=== PATIENT | female | born 1990 | race Hispanic/Latino ===

== ENCOUNTER 2017-03-14 16:30 | Emergency (ER) | payer BC ==
[2017-03-14 17:11] LABS: Bilirubin Negative (Negative); Blood, Urine Negative (Negative); Glucose, Urine (Dipstick) Negative (Negative); Ketone, Urine Negative (Negative); Nitrite Negative (Negative); Protein, Urine (Dipstick) Negative (Neg-Trace); Urobilinogen 0.2 mg/dL (0.2-1.0)
[2017-03-14 17:23] LABS: #Basophils 0.1 thou/uL (0.0-0.2); #Eosinphils 0.2 thou/uL (0.0-0.7); #Lymphocytes 2.2 thou/uL (1.20-3.40); #Monocytes 0.5 thou/uL (0.11-0.59); #Neutrophils 7.3 thou/uL (1.40-6.50); %Basophils 0.6 % (0.0-1.0); %Eosinophils 2.1 % (0.0-10.0); %Lymphocytes 21.3 % (21.0-51.0); %Monocytes 5.1 % (0.0-10.0); Hematocrit 37.4 % (36.0-47.0); Mean Platelet Volume 6.3 fL (7.4-10.4); Red Blood Cell (RBC) Count 4.26 mill/uL (4.20-5.40); White Blood Cell (WBC) Count 10.4 thou/uL (4.8-10.8)
--- NOTE | 2017-03-14 20:01 | ULT ---
PELVIC ULTRASOUND INCLUDING TRANSABDOMINAL AND TRANSVAGINAL AND VASCULAR DUPLEX WITH COLOR AND SPECT RAL DOPPLER IMAGIN03/14/17 HISTORY: Pelvic pain. The uterus measures 9.5 x 5.0 x 5.9 cm. The right ovary was not seen. The left ovary is enlarged gopi suring 5.8 x 5.6 x 4.8 and contains one fairly large left ovarian cyst measuring 2.5 x 4.2 x 4.6 cm as well as a second more complex hypoechoic focus which measures 2.3 x 2.4 x 2.7 cm. The smaller one could possibly represent a corpus luteum type cyst. There is a potential gestational sac within the uterine fundus which measures approximately 0.5 x 0.9 x 0.6 cm. which could represent an approximat joanna 5.5 week IUP. Correlate with serum HCGs. No abscess or abnormal fluid collection. IMPRESSION: Potential early intrauterine fundal gestational sac at approximately 5.5 weeks. Followup serum HCGs are recommended. Left ovarian cyst as well as a separate somewhat smaller more complicated appearing focus within the left ovary possibly collapsed cyst or corpus luteum type cyst. Consider followup u ltrasound examination if there remains a question of viable intrauterine as well as to re- evaluate the left ovarian abnormalities. POS: [facility]
--- NOTE | 2017-03-15 02:22 | CON ---
DATE OF ENCOUNTER: 03/14/2017 PRIMARY PHYSICIAN: Simran Coronado M.D. REFERRING PROVIDER: Vamshi Wright D.O. CHIEF COMPLAINT: Abdominal pain. HISTORY OF PRESENT ILLNESS: The patient is a 26-year-old G3, P1 female with a recently diagnosed pr egnancy at approximately 5 weeks gestation. The patient reports that she had intercourse last night with subsequent pain. Since that time, the pain has been resolving, but has been concerned for the as this has been planned . The patient reports that her pain has improved since the time of intercourse. She denies any fever, chills, constipation, diarrhea, any illness, any va ginal bleeding, or urinary symptoms. She denies nausea, vomiting. PAST MEDICAL HISTORY: Genital herpes. PAST SURGICAL HISTORY: Negative. ALLERGIES: No known drug allergies. MEDICATIONS: None. SOCIAL HISTORY: Denies drug use or tobacco use, but has reported occasional alcohol prior to this p regnancy about once or twice a month. She will drink up to 6 beers. PHYSICAL EXAMINATION: VITAL SIGNS: Blood pressure 122/79, pulse of 80, respiratory rate of 18, temperature 98.7. GENERAL: She appears to be in no acute distress. She is alert and oriented, and cooperative and pl easant to interact with. HEAD: Normocephalic, atraumatic. LUNGS: Clear to auscultation bilaterally. HEART: Has a regular rate and rhythm. ABDOMEN: Obese and soft. She does have a little bit of tenderness in her left adnexa and the supra pubic area and in her right adnexa. She has no guarding or rebound. EXTREMITIES: Nontender, nonedematous. Pelvic ultrasound shows an intrauterine with gestational sac at approximately 5 weeks and 5 days, but no pole. She has a quantitative HCG of 5224. LABORATORY DATA: Hemoglobin 12.4, hematocrit 37.4, platelets of 341,000. UA negative for nitrites, leukocyte esterase, blood. ASSESSMENT AND PLAN: The patient is a 26-year-old female with a recent diagnosis of . No confirmation of a viable as there is no pole present in the presence of a beta-hCG o f 5000. I have given the patient reassurance as her pain is resolving spontaneously and is likely i solated related to intercourse last night. I have asked her to follow up with her primary OB in 2 d ays, where a repeat beta-hCG can be ordered and reviewed for evaluation. She has been given counseling psychologist to come back to the emergency room should she experience a sudden onset of pain again. The patient has expressed understanding. I have spoken with Dr. Simran Coronado, I have communicated with her and has directed her patient to make an appointment with Dr. Sharma on Sunday as Dr. Simran Coronado will be u navailable.
== END 2017-03-14 20:36 | disposition home or self-care (01) ==
LOC: ERS 16:30
DX: O20.0 Threatened abortion (principal); O99.341 Other mental disorders complicating pregnancy, first trimester; F41.9 Anxiety disorder, unspecified; F32.9 Major depressive disorder, single episode, unspecified; Z3A.01 Less than 8 weeks gestation of pregnancy
CPT/HCPCS: 36415; 76856; 81003; 81025; 84702; 85025; 86900; 86901; 87480; 87491; 87510; 87591; 87660

== ENCOUNTER 2017-03-23 13:38 | Outpatient (CLI) | payer BC ==
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
== END 2017-03-23 13:39 | disposition home or self-care (01) ==
LOC: ULT 13:38
PROVIDERS: ATTEND Family Medicine
DX: O20.0 Threatened abortion (principal)
CPT/HCPCS: 76856

== ENCOUNTER 2017-03-30 23:33 | Emergency (ER) | payer BC ==
[2017-03-31 00:10] LABS: #Eosinphils 0.2 thou/uL (0.0-0.7); #Lymphocytes 2.6 thou/uL (1.20-3.40); #Monocytes 0.7 thou/uL (0.11-0.59); #Neutrophils 8.7 thou/uL (1.40-6.50); %Basophils 0.4 % (0.0-1.0); %Eosinophils 1.9 % (0.0-10.0); %Lymphocytes 21.4 % (21.0-51.0); Mean Platelet Volume 6.4 fL (7.4-10.4); Red Blood Cell (RBC) Count 4.23 mill/uL (4.20-5.40); White Blood Cell (WBC) Count 12.3 thou/uL (4.8-10.8)
[2017-03-31 00:32] LABS: ALT (SGPT) 23 U/L (8-55); AST (SGOT) 17 U/L (5-34); Alkaline Phosphatase 57 U/L (40-150); Anion Gap 12 mmol/L (10-20); BUN (Urea Nitrogen) 16 mg/dL (7.0-18.7); Bilirubin, Total Less than 0.2 mg/dL (0.2-1.2); CK (CPK) 62 U/L (29-168); Calc. Creatinine Clearance 0 mL/min (70-130); Calcium 9.8 mg/dL (7.8-10.44); Carbon Dioxide 25 mmol/L (22-29); Chloride 105 mmol/L (98-107); Estimated GFR-MDRD Greater than 90; Globulin 3.4 g/dL (2.4-3.5); Protein, Total 7.3 g/dL (6.0-8.3)
[2017-03-31 01:35] LABS: Troponin I Less than 0.010 ng/mL (< 0.028)
[2017-03-31 04:33] LABS: Bilirubin Negative (Negative); Blood, Urine Negative (Negative); Glucose, Urine (Dipstick) Negative (Negative); Ketone, Urine Negative (Negative); Nitrite Negative (Negative); Protein, Urine (Dipstick) Negative (Neg-Trace); Urobilinogen 0.2 mg/dL (0.2-1.0)
--- NOTE | 2017-03-31 09:26 | RAD ---
CHEST 2 VIEWS: HISTORY: Chest pain. COMPARISON: Chest 1 view 2016. FINDINGS: Lungs are clear. No pneumothorax or effusion. Cardiac silhouette and mediastinal contours are with in normal limits. No acute osseous abnormality. IMPRESSION: No acute intrathoracic abnormality. POS: [facility]
== END 2017-03-31 05:44 | disposition home or self-care (01) ==
LOC: ERS 23:33
DX: O23.591 Infection of other part of genital tract in pregnancy, first trimester (principal); N76.0 Acute vaginitis; O99.341 Other mental disorders complicating pregnancy, first trimester; F32.9 Major depressive disorder, single episode, unspecified; F41.9 Anxiety disorder, unspecified; Z3A.01 Less than 8 weeks gestation of pregnancy
CPT/HCPCS: 36415; 71020; 80053; 81003; 82550; 82553; 84484; 85025; 93005

== ENCOUNTER 2017-05-10 14:43 | Outpatient (CLI) | payer BC ==
--- NOTE | 2017-05-10 16:11 | ULT ---
OB ULTRASOUND: Technique: Transabdominal ultrasound performed. History: Left ovarian cyst, follow up. Comparison: 03-23-17. A left ovarian cyst at that time was measured at 5.8 cm and a second left ovari an cyst was described at 1.7 cm. FINDINGS: There is a viable intrauterine , gestational age by ultrasound is 13 weeks 5 days. hea rt rate recorded at 147 b/min. Placenta is posterior. Amniotic fluid volume appears normal. A large left ovarian cyst is again seen measuring 5 x 6 x 7.5 cm. Right ovary appears unremarkable. Color doppler and spectral analysis shows blood flow to both ovarie s. IMPRESSION: 1. Viable intrauterine with gestational age by ultrasound consistent with 13 week 5 day ges tation. 2. Large left ovarian cyst. POS: [facility]
== END 2017-05-10 14:44 | disposition home or self-care (01) ==
LOC: ULT 14:43
PROVIDERS: ATTEND Family Medicine
DX: O34.81 Maternal care for other abnormalities of pelvic organs, first trimester (principal); Z3A.13 13 weeks gestation of pregnancy
CPT/HCPCS: 76805

== ENCOUNTER 2017-05-22 12:02 | Emergency (ER) | payer BC, OTHER ==
[2017-05-22 12:56] LABS: Bilirubin Negative (Negative); Blood, Urine Negative (Negative); Glucose, Urine (Dipstick) Negative (Negative); Ketone, Urine Negative (Negative); Nitrite Negative (Negative); Protein, Urine (Dipstick) Negative (Neg-Trace)
[2017-05-22 12:59] LABS: Bacteria/HPF 1+ HPF (None Seen); Hyaline Casts/LPF 4-6 HYALINE CAST LPF (0-3 Hyaline); WBC/HPF 0-3 HPF (0-3)
[2017-05-22 13:00] LABS: RBC/HPF None Seen HPF (0-3)
[2017-05-22 14:41] LABS: #Eosinphils 0.1 thou/uL (0.0-0.7); #Lymphocytes 1.9 thou/uL (1.20-3.40); #Monocytes 0.4 thou/uL (0.11-0.59); #Neutrophils 7.7 thou/uL (1.40-6.50); %Basophils 0.5 % (0.0-1.0); %Eosinophils 1.4 % (0.0-10.0); %Lymphocytes 18.2 % (21.0-51.0); %Monocytes 4.3 % (0.0-10.0); Hematocrit 36.5 % (36.0-47.0); Mean Platelet Volume 6.9 fL (7.4-10.4); Red Blood Cell (RBC) Count 4.19 mill/uL (4.20-5.40); White Blood Cell (WBC) Count 10.2 thou/uL (4.8-10.8)
[2017-05-22 15:03] LABS: Anion Gap 11 mmol/L (10-20); BUN (Urea Nitrogen) 9 mg/dL (7.0-18.7); Calc. Creatinine Clearance 0 mL/min (70-130); Calcium 10.1 mg/dL (7.8-10.44); Carbon Dioxide 27 mmol/L (22-29); Chloride 103 mmol/L (98-107); Estimated GFR-MDRD Greater than 90
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
== END 2017-05-22 16:24 | disposition home or self-care (01) ==
LOC: ERS 12:02
DX: O34.82 Maternal care for other abnormalities of pelvic organs, second trimester (principal); N83.202 Unspecified ovarian cyst, left side; O99.89 Other specified diseases and conditions complicating pregnancy, childbirth and the puerperium; M54.5 Low back pain; O99.342 Other mental disorders complicating pregnancy, second trimester; F41.9 Anxiety disorder, unspecified; F32.9 Major depressive disorder, single episode, unspecified; Z3A.15 15 weeks gestation of pregnancy
CPT/HCPCS: 36415; 76856; 80048; 81003; 81015; 81025; 85025

== ENCOUNTER 2017-06-13 10:51 | Outpatient (CLI) | payer BC ==
--- NOTE | 2017-06-13 13:59 | ULT ---
OB ULTRASOUND COMPLETE: History: Anatomy. Comparison: 05-22-17 FINDINGS: Placenta is posterior. Amniotic fluid index is 19.1 cm. heart rate is documented at 152 beats/m inute. The average ultrasound age is 19 weeks 0 days. Estimated date of delivery is 11-07-17. This correspond s to the gestational age. Biometry: BPD 4.27 cm 18 weeks 6 days HC 16.16 cm 19 weeks 0 day AC 14.00 cm 19 weeks 3 days FL 3.17 cm 19 weeks 5 days Estimated weight is 293 grams, 91st percentile. The anatomy scan including the spine, bladder, diaphragm, kidneys, cerebellum, three vessel cord, pos terior fossa spinal cord insertion, and stomach are normal. IMPRESSION: Normal anatomy scan. Single live intrauterine with normal heart rate and average ultrasound age of 19 weeks 0 day. POS: [facility]
== END 2017-06-13 10:52 | disposition home or self-care (01) ==
LOC: ULT 10:51
PROVIDERS: ATTEND Family Medicine
DX: Z34.92 Encounter for supervision of normal pregnancy, unspecified, second trimester (principal); Z3A.19 19 weeks gestation of pregnancy
CPT/HCPCS: 76805

== ENCOUNTER 2017-06-16 19:03 | Emergency (ER) | payer BC, OTHER ==
[2017-06-16 19:41] LABS: Bilirubin Negative (Negative); Blood, Urine Negative (Negative); Clarity Clear (Clear); Glucose, Urine (Dipstick) Negative (Negative); Leukocyte Negative (Negative); Nitrite Negative (Negative); Protein, Urine (Dipstick) Negative (Neg-Trace); Urobilinogen 0.2 mg/dL (0.2-1.0)
[2017-06-16] MEDS ORDERED: Cyclobenzaprine 10 MG TAB ONE (19:41)
== END 2017-06-16 19:47 | disposition home or self-care (01) ==
LOC: SCSER 19:03
DX: O9A.212 Injury, poisoning and certain other consequences of external causes complicating pregnancy, second trimester (principal); S29.012A Strain of muscle and tendon of back wall of thorax, initial encounter; O99.342 Other mental disorders complicating pregnancy, second trimester; F41.9 Anxiety disorder, unspecified; F32.9 Major depressive disorder, single episode, unspecified; Z3A.19 19 weeks gestation of pregnancy; X50.9XXA Other and unspecified overexertion or strenuous movements or postures, initial encounter
CPT/HCPCS: 81003; 99283

== ENCOUNTER 2017-10-26 15:46 | Day surgery (SDC) | payer BC, OTHER ==
[2017-10-26 16:20] VITALS: BMI 42.1
[2017-10-26 16:25] VITALS: BP 129/68
--- NOTE | 2017-10-26 18:03 | PRG ---
DATE OF SERVICE: 10/26/2017 OB ED NOTE PRESENTING COMPLAINT: Elevated blood pressure 140/80 at home x1 with 12 blood pressure checks, and d izziness. HISTORY OF PRESENT ILLNESS: Ms. Peace is a 26-year-old 3, para 1, AB 1, scheduled for an in duction in 3 days with JOSE of 11/10/2017, who presents with a history of mildly elevated blood pressu res and edema. She has not had proteinuria at Dr. Coronado's office. She has a history of fatty liver with normal LFTs. She denies right upper quadrant pain. She denies blurred vision or headache. OBSTETRIC AND GYNECOLOGIC HISTORY: x1, post-date induction; elective termination x1. Rubella no nimmune. VDRL, hepatitis negative. HSV positive on suppression. Blood type A positive. Antibody n egative. Group B strep negative. PAST MEDICAL HISTORY: Obesity and fatty liver. PAST SURGICAL HISTORY: None. ALLERGIES: Denies. MEDICATIONS: vitamins. SOCIAL HISTORY: Denies tobacco, alcohol, or drug abuse. FAMILY HISTORY: Noncontributory. REVIEW OF SYSTEMS: Noncontributory. PHYSICAL EXAMINATION: GENERAL: Obese female in no acute distress. VITAL SIGNS: Blood pressure 132/72, pulse 96, respirations 18. Repeat blood pressures 129/68 and 13 7/76. HEENT: Within normal limits. LUNGS: Clear to auscultation bilaterally. HEART: Regular rhythm. ABDOMEN: Soft and nontender. No palpable contractions. FHTs 140s. PELVIC: Vulva without lesions. No evidence of active herpes lesion. Cervical exam deferred. EXTREMITIES: 1+ edema. 20-minute heart rate tracing revealed positive accelerations, no decelerations, no evidence of labor. IMPRESSION: Mildly elevated occasional blood pressures at home, but no evidence of preeclampsia or s evere gestational hypertension with negative proteinuria and normal liver enzymes at Dr. Coronado's off ice. PLAN: Discharge home. The patient to return for scheduled induction with Cytotec in 3 days.
== END 2017-10-26 16:50 | disposition home or self-care (01) ==
LOC: L&D/OP 15:46
PROVIDERS: ATTEND Family Medicine
DX: O99.89 Other specified diseases and conditions complicating pregnancy, childbirth and the puerperium (principal); R03.0 Elevated blood-pressure reading, without diagnosis of hypertension; O99.619 Diseases of the digestive system complicating pregnancy, unspecified trimester; K76.0 Fatty (change of) liver, not elsewhere classified; Z79.899 Other long term (current) drug therapy
CPT/HCPCS: 99282

== ENCOUNTER 2017-10-28 14:44 | Inpatient (IN) | payer BC, OTHER ==
[2017-10-28] MEDS ORDERED: Promethazine HCl 25 MG/ML VIAL IM PRN (21:18)
[2017-10-28] MEDS ORDERED: Ondansetron HCl/PF 4 MG/2 ML Vial IVP PRN (21:18)
[2017-10-28] MEDS ORDERED: Misoprostol 200 MCG TAB PR PRN (21:18)
[2017-10-28] MEDS ORDERED: Zolpidem Tartrate 5 MG TAB PO PRN (21:18)
[2017-10-28] MEDS ORDERED: HYDROcodone/Acetaminophen 5/325 mg Tablet PO PRN (21:18)
[2017-10-28] MEDS ORDERED: Acetaminophen/Codeine 30-300mg Tablet PO PRN (21:18)
[2017-10-28] MEDS ORDERED: NS / Oxytocin 40 units/1000ml 1,000 ML IV PRN (21:18)
[2017-10-28] MEDS ORDERED: NS w/ Oxytocin 10 units 500 ML IV SCH (21:18)
[2017-10-28] MEDS ORDERED: Lidocaine 1% (PF) 30 ML VIAL SC PRN (21:18)
[2017-10-28 21:30] LABS: Hemoglobin 11.1 g/dL (12.0-16.0); Mean Corpuscular Hemoglobin 29.6 pg (27.0-31.0); Mean Corpuscular Volume 84.4 fl (81.0-99.0); Mean Platelet Volume 7.7 fL (7.4-10.4); Platelet Count 248 thou/uL (130-400); RBC Distribution Width 12.8 % (11.5-14.5); Red Blood Cell (RBC) Count 3.75 mill/uL (4.20-5.40); White Blood Cell (WBC) Count 10.2 thou/uL (4.8-10.8)
[2017-10-28 21:37] LABS: ALT (SGPT) 11 U/L (8-55); AST (SGOT) 17 U/L (5-34); Albumin 3.3 g/dL (3.5-5.0); Alkaline Phosphatase 116 U/L (40-150); Anion Gap 13 mmol/L (10-20); BUN (Urea Nitrogen) 13 mg/dL (7.0-18.7); Bilirubin, Total Less than 0.2 mg/dL (0.2-1.2); Calc. Creatinine Clearance 0 mL/min (70-130); Calcium 9.5 mg/dL (7.8-10.44); Carbon Dioxide 22 mmol/L (22-29); Chloride 107 mmol/L (98-107); Estimated GFR-MDRD Greater than 90; Globulin 2.7 g/dL (2.4-3.5); Glucose 100 mg/dL (70-105); Potassium 4.5 mmol/L (3.5-5.1); Sodium 137 mmol/L (136-145)
[2017-10-28] MEDS: Lactated Ringer's 1,000 ML IV SCH (21:42)
[2017-10-28] MEDS: NS w/ Oxytocin 10 units 500 ML IV SCH (21:42)
[2017-10-28 21:47] VITALS: BMI 42.5
[2017-10-28 21:55] LABS: Syphilis Antibody Nonreactive (Nonreactive); Syphilis Antibody Index 0.02 S/CO (<1.00 Non-Reactive)
[2017-10-28] MEDS: Misoprostol 100 MCG TAB VAG SCH (22:13)
[2017-10-28 22:53] LABS: HBSAg Index 0.18 S/CO (0-0.99); Hep B Surf Ag Non-Reactive S/CO (NonReactive)
[2017-10-29] MEDS: Misoprostol 100 MCG TAB VAG SCH ×3 (00:32→07:59)
[2017-10-29] MEDS ORDERED: Bupivacaine 0.5% 20 ML, fentaNYL Citrate/PF 400 MCG in Sodium Chloride 0.9% 72 ML EPIDURAL SCH (04:45)
[2017-10-29] MEDS ORDERED: DISCONTINUE ALL PREVIOUS NARCOTICS FS SCH (04:45)
[2017-10-29] MEDS ORDERED: Ondansetron HCl/PF 4 MG/2 ML Vial IVP PRN ×2 (05:38→13:50)
[2017-10-29] MEDS ORDERED: Naloxone HCl 0.4 mg/ml Vial IVP PRN ×2 (05:38)
[2017-10-29] MEDS ORDERED: diphenhydrAMINE 50 MG/ML VIAL IVP PRN (05:38)
[2017-10-29] MEDS ORDERED: Promethazine HCl 25 MG/ML VIAL IM PRN (05:38)
[2017-10-29] MEDS ORDERED: ePHEDrine/0.9% NaCl/PF SYRINGE 50 mg/10 ml SLOW IVP PRN (05:38)
[2017-10-29] MEDS ORDERED: Acetaminophen 325 MG TAB PO PRN (05:38)
[2017-10-29] MEDS ORDERED: Lactated Ringer's 500 ML IV PRN (05:38)
[2017-10-29] MEDS ORDERED: Eucerin (Mineral Oil/Petrolatum,White) 30 gm Jar TOP PRN (05:38)
[2017-10-29] MEDS ORDERED: Communication Order-Pharmacy FS SCH (05:45)
[2017-10-29] MEDS ORDERED: Fentanyl 4mcg/Marcaine 0.1% Cassette 100 ML EPIDURAL SCH (05:45)
[2017-10-29] MEDS: Lactated Ringer's 1,000 ML IV SCH (06:01)
[2017-10-29] MEDS: NS w/ Oxytocin 10 units 500 ML IV SCH (07:45)
[2017-10-29] MEDS ORDERED: Lidocaine 1% (PF) 30 ML VIAL ONE (10:07)
[2017-10-29] MEDS ORDERED: NS / Oxytocin 40 units/1000ml 1,000 ML ONE (10:07)
[2017-10-29] MEDS ORDERED: NS / Oxytocin 40 units/1000ml 1,000 ML IV SCH (13:50)
[2017-10-29] MEDS ORDERED: Benzocaine/Menthol 20-0.5% 60 ML CAN TOP PRN (13:50)
[2017-10-29] MEDS ORDERED: diphenhydrAMINE 25 MG CAP PO PRN (13:50)
[2017-10-29] MEDS ORDERED: HYDROcodone/Acetaminophen 5/325 mg Tablet PO PRN (13:50)
[2017-10-29] MEDS ORDERED: traMADol HCl 50 MG TAB PO PRN (13:50)
[2017-10-29] MEDS ORDERED: Preparation H Ointment 28 GM TUBE PR PRN (13:50)
[2017-10-29] MEDS ORDERED: Lanolin Ointment 7 GM TUBE TOP PRN (13:50)
[2017-10-29] MEDS ORDERED: Milk Of Magnesia 30 ML UDCUP PO PRN (13:50)
[2017-10-29] MEDS ORDERED: Docusate Calcium (SURFAK) 240 MG CAP PO SCH ×2 (13:50→14:15)
[2017-10-29] MEDS ORDERED: Bisacodyl 10 MG SUPP PR PRN (13:50)
[2017-10-29] MEDS: Acetaminophen/Codeine 30-300mg Tablet PO PRN (18:00)
[2017-10-29] MEDS: Ferrous Sulfate 325 MG TAB PO SCH (18:01)
[2017-10-29] MEDS: Ibuprofen 800 MG TAB PO SCH ×2 (18:02→21:36)
[2017-10-29] MEDS: Docusate Calcium (SURFAK) 240 MG CAP PO SCH (21:36)
[2017-10-30] MEDS: Acetaminophen/Codeine 30-300mg Tablet PO PRN (03:11)
[2017-10-30] MEDS: Ibuprofen 800 MG TAB PO SCH ×2 (05:18→13:45)
[2017-10-30] MEDS: Docusate Calcium (SURFAK) 240 MG CAP PO SCH (08:29)
[2017-10-30] MEDS: Ferrous Sulfate 325 MG TAB PO SCH ×2 (08:30→17:01)
[2017-10-30] MEDS ORDERED: Bupivacaine HCl 0.5%/Epinephrine 1:200,000/PF 30 ml Vial ONE (11:02)
[2017-10-30 12:30] VITALS: BP 99/55; TEMP 98.6
[2017-10-30] MEDS ORDERED: Measles/Mumps/Rubella 10 MCG/0.5 ML VIAL SC ONE (18:00)
== END 2017-10-30 17:05 | disposition home or self-care (01) | DRG 775 ==
LOC: L&D 20:03 → 3SW 10-29 17:39
PROVIDERS: ADMIT Family Medicine; ATTEND Family Medicine
PROC: 10E0XZZ Delivery of Products of Conception, External Approach (ICD-10-PCS; principal; 2017-10-28)
PROC: 0UQMXZZ Repair Vulva, External Approach (ICD-10-PCS; 2017-10-28)
PROC: 3E033VJ Introduction of Other Hormone into Peripheral Vein, Percutaneous Approach (ICD-10-PCS; 2017-10-28)
PROC: 3E0P7VZ Introduction of Hormone into Female Reproductive, Via Natural or Artificial Opening (ICD-10-PCS; 2017-10-28)
DX: O13.4 Gestational [pregnancy-induced] hypertension without significant proteinuria, complicating childbirth (principal); Z37.0 Single live birth; Z3A.38 38 weeks gestation of pregnancy; O70.0 First degree perineal laceration during delivery
CPT/HCPCS: 51702; 80053; 81003; 85027; 86780; 86850; 86900; 86901; 87340; 90707; J0670; J2001; J3010; J3490; J7050

== ENCOUNTER 2017-11-14 11:10 | Emergency (ER) | payer BC, OTHER ==
[2017-11-14] MEDS ORDERED: Morphine 4 MG/ML VIAL ONE (11:40)
[2017-11-14 12:12] LABS: #Basophils 0.1 thou/uL (0.0-0.2); #Eosinphils 0.1 thou/uL (0.0-0.7); #Lymphocytes 1.7 thou/uL (1.20-3.40); #Monocytes 0.4 thou/uL (0.11-0.59); #Neutrophils 6.4 thou/uL (1.40-6.50); %Basophils 0.9 % (0.0-1.0); %Eosinophils 1.6 % (0.0-10.0); %Lymphocytes 19.1 % (21.0-51.0); %Monocytes 4.2 % (0.0-10.0); %Neutrophils 74.2 % (42.0-75.0); Hemoglobin 13.7 g/dL (12.0-16.0); Mean Corpuscular HGB CONC 33.1 g/dL (32.0-36.0); Mean Corpuscular Hemoglobin 28.5 pg (27.0-31.0); Mean Corpuscular Volume 86.2 fl (81.0-99.0); Mean Platelet Volume 7.1 fL (7.4-10.4); Platelet Count 318 thou/uL (130-400); RBC Distribution Width 12.6 % (11.5-14.5); White Blood Cell (WBC) Count 8.7 thou/uL (4.8-10.8)
[2017-11-14 12:20] LABS: Bilirubin Negative (Negative); Blood, Urine Large (Negative); Glucose, Urine (Dipstick) Negative (Negative); Leukocyte Moderate (Negative); Nitrite Negative (Negative); Protein, Urine (Dipstick) Trace mg/dL (Neg-Trace); Urobilinogen 0.2 mg/dL (0.2-1.0)
[2017-11-14 12:32] LABS: Clarity Clear (Clear)
[2017-11-14 12:41] LABS: ALT (SGPT) 27 U/L (8-55); AST (SGOT) 24 U/L (5-34); Albumin 4.4 g/dL (3.5-5.0); Alkaline Phosphatase 77 U/L (40-150); Anion Gap 14 mmol/L (10-20); BUN (Urea Nitrogen) 12 mg/dL (7.0-18.7); Bilirubin, Total 0.4 mg/dL (0.2-1.2); Calc. Creatinine Clearance 0 mL/min (70-130); Carbon Dioxide 24 mmol/L (22-29); Chloride 104 mmol/L (98-107); Estimated GFR-MDRD Greater than 90; Globulin 3.6 g/dL (2.4-3.5); Glucose 102 mg/dL (70-105); Lipase 12 U/L (8-78); Potassium 4.3 mmol/L (3.5-5.1); Sodium 138 mmol/L (136-145)
[2017-11-14 12:44] LABS: Bacteria/HPF Rare-Few HPF (None Seen); Hyaline Casts/LPF NONE SEEN LPF (0-3 Hyaline); WBC/HPF 0-3 HPF (0-3)
--- NOTE | 2017-11-14 12:58 | ULT ---
PELVIC SONOGRAM: HISTORY: Pelvic pain. Recent delivery. TECHNIQUE: Transabdominal imaging with duplex evaluation. FINDINGS: The urinary bladder is incompletely distended. The uterus has a heterogeneous echotexture, measuring up to 12.4 cm. The endometrium is 2.5 cm and contains a small echogenic focus. Physiologic amount of free fluid. At the right adnexa, a large cyst is 14.6 x 11.6 x 10.2 cm in greatest diameter. The rim demonstrate s good color and spectral Doppler flow and may represent a small remnant of ovarian tissue. The left ovary is 3.9 cm and has a normal appearance with good color and spectral Doppler flow. IMPRESSION: 1. Very large right adnexal cystic mass, 14.6 cm. 2. Post uterus. 3. Thickened endometrium of 2.5 cm. 4. Internal echogenic focus may represent residual gas or calcification. 5. No evidence of retained products of conception. POS: [facility]
[2017-11-16 22:11] LABS: Chlamydia by PCR Not Detected (NotDetected); GC by PCR Not Detected (NotDetected)
== END 2017-11-14 14:05 | disposition home or self-care (01) ==
LOC: ERS 11:10
DX: O86.20 Urinary tract infection following delivery, unspecified (principal); O99.89 Other specified diseases and conditions complicating pregnancy, childbirth and the puerperium; K59.00 Constipation, unspecified; F41.9 Anxiety disorder, unspecified; F32.9 Major depressive disorder, single episode, unspecified
CPT/HCPCS: 36415; 76856; 80053; 81003; 81015; 83605; 83690; 85025; 87040; 87086; 87480; 87491; 87510; 87591; 87660; 93976; 96361; 96374; J2270

== ENCOUNTER 2019-03-12 09:52 | Outpatient (CLI) | payer BC ==
--- NOTE | 2019-03-12 12:00 | RAD ---
LEFT KNEE 3 VIEWS: Date: 03/12/19 HISTORY: Acute left knee pain. FINDINGS: There are no signs of fracture or joint effusion. There is no degenerative spur formation seen. IMPRESSION: Unremarkable left knee. POS: [facility]
--- NOTE | 2019-03-12 12:01 | RAD ---
LEFT HIP 2 VIEWS: Date: 03/12/19 HISTORY: Left hip pain. FINDINGS: Joint space appears fairly well preserved. I do not see any signs of any fracture or other findings. IMPRESSION: Unremarkable left hip. POS: [facility]
== END 2019-03-12 09:53 | disposition home or self-care (01) ==
LOC: BICRAD 09:52
PROVIDERS: ATTEND Family Medicine
DX: M25.562 Pain in left knee (principal)